=== PATIENT | female | born 1995 | race Caucasian/White ===

== ENCOUNTER 2020-07-19 09:13 | Emergency (ER) | payer OTHER ==
[~2020-07-19] VITALS: Ht 157.5 cm; Wt 70.3 kg
[2020-07-19 09:15] VITALS: BP 128/80
--- NOTE | 2020-07-19 09:42 | NUR ---
Patient being evaluated by Dr. Couch at bedside.
--- NOTE | 2020-07-19 09:44 | NUR ---
24 Y/O FEMALE C/O VAGINAL BLEEDING X5 DAYS + POSITIVE TEST TWO WEEKS AGO. LMP: 05/30/2020. . PATIENT STATES THE FIRST 4 DAYS OF VAGINAL BLEEDING WERE HEAVY, BUT NO CLOTS PRESENT. TODAY VAGINAL BLEEDING IS ONLY SCANT. DENIES ANY ABD PAIN/CRAMPING AT THIS TIME. DENIES ANY WEAKNESS, LIGHTHEADEDNESS. DENIES ANY N/V/D. NO PMH NKA
--- NOTE | 2020-07-19 10:00 | NUR ---
ULTRASOUND AT BEDSIDE
[2020-07-19 10:22] LABS: BASOPHILS % (AUTO) 0.4 % (0.0-2.0); EOSINOPHILS # (AUTO) 0.2 K/uL (0-0.4); EOSINOPHILS % (AUTO) 2.2 % (0.0-4.0); HEMATOCRIT 39.1 % (36-48); LYMPHOCYTES % (AUTO) 34.4 % (20.5-51.1); MEAN CORPUSCULAR HEMOGLOBIN 30 pg (27-31); MEAN CORPUSCULAR HGB CONC 33 g/dL (33-37); MEAN CORPUSCULAR VOLUME 88.9 fL (80-94); MONOCYTES # (AUTO) 0.6 K/uL (0.8-1.0); NEUTROPHILS # (AUTO) 4.8 K/uL (1.8-7.7); PLATELET COUNT (AUTO) 289 K/uL (140-450); RED CELL DISTRIBUTION WIDTH 12.9 % (11.6-13.7); WHITE BLOOD COUNT (AUTO) 8.6 K/uL (4.8-10.8)
[2020-07-19 10:25] LABS: APPEARANCE,URINE CLEAR (CLEAR); BILIRUBIN,URINE NEGATIVE (NEGATIVE); BLOOD, URINE 3+ (NEGATIVE); COLOR,URINE YELLOW (YELLOW); LEUKOCYTE ESTERASE ,URINE NEGATIVE (NEGATIVE); NITRITE, URINE NEGATIVE (NEGATIVE); UGLUCOSE NEGATIVE (NEGATIVE)
[2020-07-19 10:31] LABS: RBC,URINE 11-20 (MOD) /HPF (0-5); WBC,URINE 0-5 /HPF (0-5)
[2020-07-19 12:16] VITALS: BP 128/80
--- NOTE | 2020-07-19 12:16 | NUR ---
Patient discharged with v/s stable. Written and verbal after care instructions given and explained. Patient alert, oriented and verbalized understanding of instructions. Ambulatory with steady gait. All questions addressed prior to discharge. ID band removed. Patient advised to follow up with PMD. Patient educated on indication of medication including possible reaction and side effects. Opportunity to ask questions provided and answered.
== END 2020-07-19 12:16 | disposition home or self-care (01) ==
LOC: MED 09:13
DX: O20.0 Threatened abortion (principal); Z3A.01 Less than 8 weeks gestation of pregnancy
CPT/HCPCS: 36415; 76801; 76817; 81001; 81025; 84702; 85025; 86900; 86901; 99285; Q0092